=== PATIENT | female | born 1975 | race African-American/Black ===

== ENCOUNTER 2017-03-17 12:02 | Inpatient (IN) | payer MEDICAID ==
[~2017-03-17] VITALS: Ht 167.6 cm; Wt 115.7 kg
[2017-03-17 12:02] VITALS: BP_SYST 145
[2017-03-17] MEDS ORDERED: NACL 0.9% 1,000 ML IV ONE ×2 (12:07→12:15)
[2017-03-17] MEDS ORDERED: HYDROmorphone 1 MG INJ. 1 MG/ML AMPUL IVP ONE ×2 (12:15→15:30)
[2017-03-17] MEDS ORDERED: FAMOTIDINE PF 20 MG/2 ML VIAL IVP ONE (12:15)
[2017-03-17] MEDS ORDERED: ONDANSETRON HCL 4 MG/2 ML VIAL IVP ONE (12:15)
[2017-03-17] MEDS ORDERED: FAMOTIDINE PF 20 MG/2 ML VIAL ONE (12:24)
[2017-03-17] MEDS ORDERED: HYDROmorphone 2 MG/ML VIAL ONE (12:41)
[2017-03-17 12:45] LABS: HEMATOCRIT 34.8 % (36-48); HEMOGLOBIN 10.9 g/dL (12.0-16.0); MEAN CORPUSCULAR HEMOGLOBIN 30 pg (27-31); MEAN CORPUSCULAR HGB CONC 31 % (32-36); MEAN CORPUSCULAR VOLUME 96 fL (79.0-98.0); PLATELET COUNT (AUTO) 336 K/uL (130-430); RED BLOOD CELL COUNT(AUTO) 3.62 MIL/uL (4.2-6.2); RED CELL DISTRIBUTION WIDTH 19.1 % (9.0-15.0); WHITE BLOOD COUNT (AUTO) 5.9 K/uL (4.8-10.8)
[2017-03-17 13:27] LABS: LYMPHOCYTES % (MANUAL) 29 % (20-46)
[2017-03-17 13:28] LABS: BASOPHILS % (MANUAL) 0 % (0-2); EOSINOPHILS % (MANUAL) 0 % (0-7)
[2017-03-17 13:29] LABS: MONOCYTES % (MANUAL) 5 % (0-11)
[2017-03-17 13:40] LABS: CALCIUM 8.2 mg/dL (8.4-11.0); CREATININE 0.59 mg/dL (0.55-1.30); POTASSIUM 3.2 mmol/L (3.5-5.1)
[2017-03-17 13:45] LABS: ALBUMIN 3.4 g/dL (3.4-4.8); TOTAL BILIRUBIN 0.4 mg/dL (0.0-1.0)
[2017-03-17 13:47] LABS: INR 1.1 (0.8-1.2); PROTHROMBIN TIME 11.3 SECS (9.5-12.5)
[2017-03-17] MEDS ORDERED: ONDANSETRON HCL 4 MG/2 ML VIAL IVP PRN (15:00)
[2017-03-17] MEDS ORDERED: POTASSIUM CHLORIDE 20 MEQ TAB.PRT.SR PO PRN (15:00)
[2017-03-17] MEDS ORDERED: LORazepam 2 MG/ML VIAL IVP PRN (15:00)
[2017-03-17] MEDS ORDERED: MORPHINE 2 MG/ML INJ. SYRINGE IVP PRN (15:00)
[2017-03-17] MEDS ORDERED: ZOLPIDEM TARTRATE 5 MG TABLET PO PRN (15:00)
[2017-03-17] MEDS ORDERED: ACETAMINOPHEN 325 MG TABLET PO PRN (15:00)
[2017-03-17] MEDS ORDERED: SIMETHICONE 80 MG TAB.CHEW PO PRN (15:00)
[2017-03-17] MEDS ORDERED: BISACODYL 10 MG/SUPPOSITORY RC PRN (15:00)
[2017-03-17] MEDS ORDERED: HYDROcodone/ACETAMIN 10-325 MG TAB PO PRN (15:00)
[2017-03-17 16:00] LABS: FREE T4 (FREE THYROXINE) 0.8 ng/dL (0.6-1.6); PHOSPHORUS 3.8 mg/dL (2.7-4.5); THYROID STIMULATING HORMONE 1.19 uIu/mL (0.34-4.82)
[2017-03-17 16:01] VITALS: BP_SYST 154
[2017-03-17] MEDS ORDERED: HYDROmorphone 2 MG/ML VIAL IM PRN (16:15)
[2017-03-17 17:11] LABS: BARBITURATE, URINE NEGATIVE (NEG <=200); BENZODIAZEPINE, URINE NEGATIVE (NEG <=150); CANNABINOID, URINE NEGATIVE (NEG <=50); COCAINE, URINE NEGATIVE (NEG <=150); METHAMPHETAMINES SCREEN,URINE NEGATIVE (NEG <=500); OPIATE, URINE POSITIVE (NEG <=100); PHENCYCLIDINE SCREEN,URINE NEGATIVE (NEG <=25); UR TRICYCLIC ANTIDEPRESSANTS NEGATIVE (NEG <=300); URINE AMPHETAMINE NEGATIVE (NEG <=500); URINE METHADONE NEGATIVE (NEG <=200); URINE OXYCODONE SCREEN NEGATIVE (NEG <=100); URINE PROPOXYPHENE SCREEN NEGATIVE (NEG <=300)
[2017-03-17 17:25] LABS: BILIRUBIN,URINE NEGATIVE (NEGATIVE); BLOOD, URINE NEGATIVE (NEGATIVE); CLARITY/URINE SLIGHTLY HAZY (CLEAR); COLOR,URINE YELLOW (YELLOW); GLUCOSE,URINE NEGATIVE (NEGATIVE); KETONES,URINE 2+ (NEGATIVE); LEUKOCYTE ESTERASE ,URINE NEGATIVE (NEGATIVE); NITRITE, URINE NEGATIVE (NEGATIVE); PROTEIN URINE TRACE (NEGATIVE)
[2017-03-17 17:26] LABS: UROBILINOGEN,URINE 0.2 (0.2-1.0)
[2017-03-17 17:28] LABS: BACTERIA,URINE FEW /HPF (None Seen); HYALINE CASTS, URINE 0-10 /LPF (None Seen); MUCUS,URINE 2+ /LPF (None Seen); RBC,URINE NONE SEEN /HPF (0-3); TRICHOMONAS,URINE Few /HPF (None Seen)
[2017-03-17] MEDS: HYDROmorphone 2 MG/ML VIAL IVP PRN ×2 (17:50→21:03)
[2017-03-17] MEDS: NACL 0.9% 1,000 ML IV SCH ×3 (19:11→22:54)
[2017-03-17 20:00] VITALS: BP_SYST 170
[2017-03-17] MEDS: DOCUSATE SODIUM 100 MG CAPSULE PO SCH (21:37)
[2017-03-18] MEDS: HYDROmorphone 2 MG/ML VIAL IVP PRN ×6 (00:48→23:01)
[2017-03-18 00:57] VITALS: BP_SYST 133
[2017-03-18] MEDS: NACL 0.9% 1,000 ML IV SCH ×4 (05:43→22:56)
[2017-03-18 08:05] LABS: CHOLESTEROL 204 mg/dL (<200); HDL CHOLESTEROL 75 mg/dL (>55); LDL CHOLESTEROL 113 mg/dL (<100); TRIGLYCERIDES 52 mg/dL (30-150)
[2017-03-18 08:12] VITALS: BP_SYST 152
[2017-03-18] MEDS: PANTOPRAZOLE SODIUM 40 MG/VIAL (PROTONIX) IVP SCH (09:52)
[2017-03-18] MEDS: DOCUSATE SODIUM 100 MG CAPSULE PO SCH ×2 (09:52→21:11)
[2017-03-18 12:32] VITALS: BP_SYST 120
[2017-03-18 16:52] VITALS: BP_SYST 151
[2017-03-18] MEDS: hydrALAZINE HCL 20 MG/ML VIAL IVP PRN (19:48)
[2017-03-18 20:00] VITALS: BP_SYST 166
[2017-03-19] MEDS: hydrALAZINE HCL 20 MG/ML VIAL IVP PRN ×2 (00:14→10:19)
[2017-03-19 00:56] VITALS: BP_SYST 151
[2017-03-19] MEDS: HYDROmorphone 2 MG/ML VIAL IVP PRN ×2 (04:53→09:26)
[2017-03-19 05:06] LABS: T4 (THYROXINE) 5.8 ug/dL (4.5-12.0)
[2017-03-19] MEDS: NACL 0.9% 1,000 ML IV SCH ×4 (05:18→20:25)
[2017-03-19 06:18] LABS: HEMOGLOBIN A1C 4.9 % (4.8-5.6)
[2017-03-19 06:39] LABS: HEMATOCRIT 29.1 % (36-48); HEMOGLOBIN 9.3 g/dL (12.0-16.0); MEAN CORPUSCULAR HEMOGLOBIN 31 pg (27-31); MEAN CORPUSCULAR HGB CONC 32 % (32-36); MEAN CORPUSCULAR VOLUME 97 fL (79.0-98.0); PLATELET COUNT (AUTO) 279 K/uL (130-430); RED CELL DISTRIBUTION WIDTH 19.1 % (9.0-15.0); WHITE BLOOD COUNT (AUTO) 8.9 K/uL (4.8-10.8)
[2017-03-19 07:12] LABS: CALCIUM 7.1 mg/dL (8.4-11.0); CREATININE 0.53 mg/dL (0.55-1.30); POTASSIUM 3.7 mmol/L (3.5-5.1); TOTAL BILIRUBIN 0.8 mg/dL (0.0-1.0)
[2017-03-19 08:00] VITALS: BP_SYST 161
[2017-03-19] MEDS: DOCUSATE SODIUM 100 MG CAPSULE PO SCH ×2 (09:00→20:25)
[2017-03-19] MEDS ORDERED: PANTOPRAZOLE SODIUM 40 MG/VIAL (PROTONIX) ONE (09:01)
[2017-03-19] MEDS: PANTOPRAZOLE SODIUM 40 MG/VIAL (PROTONIX) IVP SCH (09:02)
[2017-03-19] MEDS ORDERED: KETOROLAC TROMETHAMINE 15 MG VIAL IVP PRN (09:30)
[2017-03-19 11:27] VITALS: BP_SYST 155
[2017-03-19 12:11] LABS: ATYPICAL LYMPHOCYTES % 2 % (0-0); BAND % (MANUAL) 0 % (0-6); BASOPHILS % (MANUAL) 0 % (0-2); EOSINOPHILS % (MANUAL) 0 % (0-7); LYMPHOCYTES % (MANUAL) 8 % (20-46); MONOCYTES % (MANUAL) 0 % (0-11)
[2017-03-19] MEDS ORDERED: METOPROLOL TARTRATE 50 MG TABLET PO ONE (15:15)
[2017-03-19] MEDS ORDERED: cloNIDine HCL 0.2 MG TABLET PO PRN (15:15)
[2017-03-19 15:59] VITALS: BP_SYST 176
[2017-03-19] MEDS: HYDROmorphone 1 MG INJ. 1 MG/ML AMPUL IVP PRN ×2 (18:43→22:49)
[2017-03-19 20:00] VITALS: BP_SYST 164
[2017-03-19] MEDS: METOPROLOL TARTRATE 50 MG TABLET PO SCH (20:25)
[2017-03-19 23:51] VITALS: BP_SYST 164
[2017-03-20] MEDS: NACL 0.9% 1,000 ML IV SCH ×2 (02:08→09:10)
[2017-03-20] MEDS: HYDROmorphone 1 MG INJ. 1 MG/ML AMPUL IVP PRN ×2 (02:56→08:10)
[2017-03-20 06:54] LABS: BASOPHILS % (AUTO) 0.3 % (0.0-2.0); EOSINOPHILS # (AUTO) 0.1 K/uL (0.0-0.4); HEMATOCRIT 27.7 % (36-48); LYMPHOCYTES % (AUTO) 10.9 % (20.5-51.5); MEAN CORPUSCULAR HEMOGLOBIN 32 pg (27-31); MEAN CORPUSCULAR HGB CONC 32 % (32-36); MEAN CORPUSCULAR VOLUME 98 fL (79.0-98.0); MONOCYTES # (AUTO) 0.4 K/uL (0.0-1.0); MONOCYTES % (AUTO) 4.2 % (1.7-9.3); NEUTROPHILS # (AUTO) 7.8 K/uL (1.8-7.7); NEUTROPHILS % (AUTO) 83.6 % (40.0-70.0); PLATELET COUNT (AUTO) 283 K/uL (130-430); RED BLOOD CELL COUNT(AUTO) 2.84 MIL/uL (4.2-6.2); RED CELL DISTRIBUTION WIDTH 20.4 % (9.0-15.0); WHITE BLOOD COUNT (AUTO) 9.3 K/uL (4.8-10.8)
[2017-03-20 06:56] LABS: CREATININE 0.64 mg/dL (0.55-1.30); POTASSIUM 3.2 mmol/L (3.5-5.1)
[2017-03-20 07:10] LABS: ALBUMIN 2.6 g/dL (3.4-4.8); TOTAL BILIRUBIN 0.8 mg/dL (0.0-1.0)
[2017-03-20 07:38] LABS: CALCIUM 6.8 mg/dL (8.4-11.0)
[2017-03-20] MEDS ORDERED: LISI10TA5 PO (07:42)
[2017-03-20] MEDS ORDERED: METO-442 PO (07:42)
[2017-03-20] MEDS ORDERED: CALC-884 PO (07:42)
[2017-03-20 08:00] VITALS: BP_SYST 177
[2017-03-20] MEDS: DOCUSATE SODIUM 100 MG CAPSULE PO SCH (08:23)
[2017-03-20] MEDS: PANTOPRAZOLE SODIUM 40 MG/VIAL (PROTONIX) IVP SCH (08:23)
[2017-03-20] MEDS: METOPROLOL TARTRATE 50 MG TABLET PO SCH (08:23)
[2017-03-20 09:05] VITALS: BP_SYST 165
[2017-03-20] MEDS ORDERED: HYDR-1189 PO (10:15)
[2017-03-20 11:33] VITALS: BP_SYST 169
== END 2017-03-20 11:00 | disposition home or self-care (01) | DRG 282 ==
LOC: SED 12:02 → STU 14:56 → SMU 03-19 07:25
PROVIDERS: ADMIT Family Medicine; ATTEND Family Medicine
DX: K85.90 Acute pancreatitis without necrosis or infection, unspecified (principal); E44.1 Mild protein-calorie malnutrition; D63.8 Anemia in other chronic diseases classified elsewhere; F10.10 Alcohol abuse, uncomplicated; R60.0 Localized edema; E87.6 Hypokalemia; K76.9 Liver disease, unspecified; Z68.41 Body mass index [BMI] 40.0-44.9, adult
CPT/HCPCS: 36415; 76700-TC; 80053; 80061; 80307; 81000-TC; 82150-TC; 83036; 83690-TC; 83735-TC; 83880; 84100-TC; 84436; 84439; 84443-TC; 84479; 85007; 85025; 85027; 85610-TC; 85730-TC; 93306; 96361; 96374; 96375; 99285; C9113; J0360; J1170; J1885; J2060; J2270; J2405; J3490; J7030

== ENCOUNTER 2017-03-20 16:50 | Emergency (ER) | payer MEDICAID ==
[~2017-03-20] VITALS: Ht 167.6 cm; Wt 115.7 kg
[2017-03-20 16:50] VITALS: BP_SYST 163
[~2017-03-20 16:50] MED LIST: CALC-884 PO; HYDR-1189 PO; LISI10TA5 PO; METO-442 PO
--- NOTE | 2017-03-20 16:50 | NUR ---
Pt report received from BETZY Schmitt. Pt c/o upper abdominal pain x 1 day. Pt was discharged from hospital this AM r/t dx Pancreatitis. Pt denies N/V/D.
--- NOTE | 2017-03-20 16:50 | NUR ---
BROUGHT BACK TO BED #3 VIA WHEELCHAIR, PLACED IN BED AND TRIAGED. REPORT GIVEN TO CHIQUIS
--- NOTE | 2017-03-20 17:00 | NUR ---
Dr. Mejia at bedside to assess pt.
[2017-03-20] MEDS ORDERED: ONDANSETRON HCL 4 MG/2 ML VIAL IVP ONE (17:15)
[2017-03-20] MEDS ORDERED: MORPHINE 4 MG/ML INJ. SYRINGE IVP ONE ×2 (17:15→19:00)
[2017-03-20 17:43] LABS: BASOPHILS # (AUTO) 0.1 K/uL (0.0-0.2); BASOPHILS % (AUTO) 1.3 % (0.0-2.0); EOSINOPHILS # (AUTO) 0.1 K/uL (0.0-0.4); EOSINOPHILS % (AUTO) 0.8 % (0.0-4.0); HEMATOCRIT 28.4 % (36-48); HEMOGLOBIN 9.3 g/dL (12.0-16.0); LYMPHOCYTES % (AUTO) 10.4 % (20.5-51.5); MEAN CORPUSCULAR HEMOGLOBIN 32 pg (27-31); MEAN CORPUSCULAR HGB CONC 33 % (32-36); MEAN CORPUSCULAR VOLUME 97 fL (79.0-98.0); MONOCYTES # (AUTO) 0.3 K/uL (0.0-1.0); MONOCYTES % (AUTO) 2.9 % (1.7-9.3); NEUTROPHILS # (AUTO) 8.1 K/uL (1.8-7.7); NEUTROPHILS % (AUTO) 84.6 % (40.0-70.0); PLATELET COUNT (AUTO) 304 K/uL (130-430); RED BLOOD CELL COUNT(AUTO) 2.93 MIL/uL (4.2-6.2); RED CELL DISTRIBUTION WIDTH 20.1 % (9.0-15.0); WHITE BLOOD COUNT (AUTO) 9.6 K/uL (4.8-10.8)
[2017-03-20 18:03] LABS: CREATININE 0.6 mg/dL (0.55-1.30); POTASSIUM 3.1 mmol/L (3.5-5.1)
[2017-03-20 18:07] LABS: ALBUMIN 2.9 g/dL (3.4-4.8); TOTAL BILIRUBIN 0.8 mg/dL (0.0-1.0)
[2017-03-20 18:21] LABS: CALCIUM 6.9 mg/dL (8.4-11.0)
--- NOTE | 2017-03-20 18:21 | NUR ---
Medicated per MD orders. Bed in lowest position, side rails up. at bedside.
[2017-03-20] MEDS ORDERED: CALCIUM GLUCONATE 1 GM/10 ML VIAL IVP ONE (18:45)
[2017-03-20] MEDS ORDERED: POTASSIUM CHLORIDE 20 MEQ TAB.PRT.SR PO ONE ×2 (18:45)
--- NOTE | 2017-03-20 19:10 | NUR ---
Pt report given to BETZY Wallace.
--- NOTE | 2017-03-20 19:10 | NUR ---
Assumed care of patient. Patient is calmly resting in ER bed, no signs of distress noted. Vital signs within therapeutic range.
[2017-03-20 20:00] VITALS: BP_SYST 164
--- NOTE | 2017-03-20 20:00 | NUR ---
Patient given written and verbal discharge instructions and verbalizes understanding. ER MD discussed with patient the results and treatment provided. Patient in stable condition. ID arm band removed. IV catheter removed intact and dressing applied, no active bleeding. Patient educated on pain management and to follow up with PMD. Pain Scale 0/10. Opportunity for questions provided and answered.
== END 2017-03-20 20:00 | disposition home or self-care (01) ==
LOC: SED 16:50
DX: K85.90 Acute pancreatitis without necrosis or infection, unspecified (principal); E87.6 Hypokalemia; E83.51 Hypocalcemia
CPT/HCPCS: 36415; 80053; 83690; 85025; 93005; 96374; 96375; 96376; 99285; J0610; J2270; J2405

== ENCOUNTER 2019-04-15 19:06 | Emergency (ER) | payer MEDICAID ==
[~2019-04-15] VITALS: Ht 167.6 cm; Wt 122.5 kg
[2019-04-15 19:40] VITALS: BP_SYST 107
[2019-04-15 20:40] LABS: BASOPHILS % (AUTO) 0.3 % (0.0-2.0); EOSINOPHILS # (AUTO) 0.1 K/uL (0.0-0.4); EOSINOPHILS % (AUTO) 0.8 % (0.0-4.0); HEMATOCRIT 36.9 % (36-48); HEMOGLOBIN 12.2 g/dL (12.0-16.0); LYMPHOCYTES # (AUTO) 0.7 K/uL (1.0-5.5); LYMPHOCYTES % (AUTO) 10.6 % (20.5-51.5); MEAN CORPUSCULAR HEMOGLOBIN 37 pg (27-31); MEAN CORPUSCULAR HGB CONC 33 % (32-36); MEAN CORPUSCULAR VOLUME 111 fL (79.0-98.0); MONOCYTES # (AUTO) 0.4 K/uL (0.0-1.0); MONOCYTES % (AUTO) 5.9 % (1.7-9.3); NEUTROPHILS # (AUTO) 5.6 K/uL (1.8-7.7); NEUTROPHILS % (AUTO) 82.4 % (40.0-70.0); PLATELET COUNT (AUTO) 229 K/uL (130-430); RED BLOOD CELL COUNT(AUTO) 3.34 MIL/uL (4.2-6.2); RED CELL DISTRIBUTION WIDTH 14.9 % (9.0-15.0); WHITE BLOOD COUNT (AUTO) 6.8 K/uL (4.8-10.8)
[2019-04-15 21:01] LABS: CALCIUM 8.6 mg/dL (8.4-11.0); POTASSIUM 4.2 mmol/L (3.5-5.1)
[2019-04-15 21:02] LABS: CREATININE 1.83 mg/dL (0.55-1.30)
[2019-04-15 21:06] LABS: ALBUMIN 3.4 g/dL (3.4-4.8); TOTAL BILIRUBIN 0.6 mg/dL (0.0-1.0)
[2019-04-15 21:29] LABS: BILIRUBIN,URINE NEGATIVE (NEGATIVE); BLOOD, URINE NEGATIVE (NEGATIVE); CLARITY/URINE SL CLOUDY (CLEAR); COLOR,URINE YELLOW (YELLOW); GLUCOSE,URINE NEGATIVE (NEGATIVE); KETONES,URINE TRACE (NEGATIVE); LEUKOCYTE ESTERASE ,URINE 1+ (NEGATIVE); NITRITE, URINE NEGATIVE (NEGATIVE); PROTEIN URINE 1+ (NEGATIVE); UROBILINOGEN,URINE 0.2 (0.2-1.0)
[2019-04-15] MEDS ORDERED: KETOROLAC TROMETHAMINE 30 MG VIAL IVP ONE (21:45)
[2019-04-15] MEDS ORDERED: ONDANSETRON HCL 4 MG/2 ML VIAL IVP ONE (21:45)
[2019-04-15] MEDS ORDERED: NACL 0.9% 1,000 ML IV ONE (21:45)
[2019-04-15 21:51] LABS: BACTERIA,URINE FEW /HPF (None Seen); RBC,URINE 0-3 /HPF (0-3); WBC,URINE 20-50 /HPF (0-3)
[2019-04-15 21:52] LABS: MUCUS,URINE None Seen /LPF (None Seen); TRICHOMONAS,URINE Few /HPF (None Seen)
[2019-04-15] MEDS ORDERED: cefTRIAXone 1 GM IVPB PREMIX 50 ML IV ONE (22:00)
[2019-04-15] MEDS ORDERED: MORPHINE 2 MG/ML INJ. SYRINGE IVP ONE (22:15)
[2019-04-15] MEDS ORDERED: MORPHINE 4 MG/ML INJ. SYRINGE ONE (22:33)
[2019-04-15] MEDS ORDERED: MORPHINE 4 MG/ML INJ. SYRINGE IVP ONE (22:45)
[2019-04-16] MEDS ORDERED: PANTOPRAZOLE SODIUM 40 MG TAB PO ONE
[2019-04-16 00:47] VITALS: BP_SYST 111
== END 2019-04-16 00:47 | disposition home or self-care (01) ==
LOC: SED 19:06
DX: N39.0 Urinary tract infection, site not specified (principal); Z79.899 Other long term (current) drug therapy
CPT/HCPCS: 36415; 71045; 76700; 80053; 81000; 81025; 83690; 85025; 87040; 87086; 96365; 96375; 96376; 99285; J0696; J1885; J2270; J2405; J7030

== ENCOUNTER 2020-08-31 17:20 | Emergency (ER) | payer MEDICAID, SELFPAY ==
[~2020-08-31] VITALS: Ht 167.6 cm; Wt 131.5 kg
[~2020-08-31 17:20] MED LIST changes: -HYDR-1189 PO; +HYDR-3919 PO; +LISI10TA29 PO; -LISI10TA5 PO
[2020-08-31 17:25] VITALS: BP_SYST 132
--- NOTE | 2020-08-31 17:25 | NUR ---
PT TO BED 8 FOR EVALUATION. REPORT TO BETZY AREVALO WHO WILL ASSUME CARE.
--- NOTE | 2020-08-31 17:30 | NUR ---
Pt walked in to ER with c/o fever, cough and SOB x 2 days. O2 sat 94% on RA. V/S stable.
--- NOTE | 2020-08-31 17:30 | NUR ---
ER Dr. Oliva at bedside examining patient.
--- NOTE | 2020-08-31 17:39 | NUR ---
Radiology at bedside for CXR
--- NOTE | 2020-08-31 19:04 | NUR ---
Care of patient endorsed to BETZY Combs. Pt currently resting in bed, no distress noted.
[2020-08-31] MEDS ORDERED: PRED20TA PO (19:07)
[2020-08-31] MEDS ORDERED: ZIT250 PO (19:07)
[2020-08-31] MEDS ORDERED: ALBU8.5H8 INH (19:08)
--- NOTE | 2020-08-31 19:10 | NUR ---
Dr. Oliva at bedside to explain lab results and treatment plans.
[2020-08-31 19:26] VITALS: BP_SYST 124
--- NOTE | 2020-08-31 19:26 | NUR ---
Patient given written and verbal discharge instructions and verbalizes understanding. ER MD discussed with patient the results and treatment provided. Patient in stable condition. ID arm band removed. Rx of Proair HFA, Prednisone and Zithromax given. Patient educated on pain management and to follow up with PMD. Pain Scale 0/10. Opportunity for questions provided and answered. Medication side effect fact sheet provided.
== END 2020-08-31 19:26 | disposition home or self-care (01) ==
LOC: SED 17:20
DX: U07.1 COVID-19 (principal); Z79.899 Other long term (current) drug therapy
CPT/HCPCS: 36415; 71045; 99284